=== PATIENT | female | born 1960 | race Caucasian/White ===

== ENCOUNTER 2017-11-25 15:28 | Outpatient (CLI) | payer OTHER | END 2017-11-25 15:29 | disposition home or self-care (01) | LOC: BICMAMMO 15:28 | PROVIDERS: ATTEND Obstetrics & Gynecology | DX: Z12.31 Encounter for screening mammogram for malignant neoplasm of breast (principal); Z80.3 Family history of malignant neoplasm of breast | CPT/HCPCS: 77063; 77067 ==

== ENCOUNTER 2018-07-26 09:20 | Outpatient (CLI) | payer BC ==
--- NOTE | 2018-07-26 11:26 | ULT ---
RENAL ULTRASOUND: Date: 07-26-18 Comparison: None. History: Hematuria. Technique: Multiplanar grayscale sonographic imaging of kidneys and urinary bladder obtained. FINDINGS: Right kidney measures 9.8 x 5.1 x 5.0 cm and left kidney measures 10.2 x 4.8 x 5.3 cm. No renal mass is identified on either side. No discrete renal stone is noted on the right and there is no right sided hydronephrosis. There is a small echogenic focus in the mid pole of the left kidney which could represent a stone yoav suring in the 5 mm range. No hydronephrosis is evident on the left. Urinary bladder appears grossly unremarkable with a prevoid volume of 122 cc and a post void volume o f 7 cc. IMPRESSION: No evidence for hydronephrosis is seen on either side. Question subcentimeter stone within mid pole l eft kidney. This could be better assessed via CT examination of the abdomen and pelvis. POS: [facility]
== END 2018-07-26 09:21 | disposition home or self-care (01) ==
LOC: BICULT 09:20
PROVIDERS: ATTEND Family Medicine
DX: R31.9 Hematuria, unspecified (principal)
CPT/HCPCS: 76770

== ENCOUNTER 2018-07-31 20:34 | Emergency (ER) | payer BC ==
[2018-07-31 21:16] LABS: Bilirubin Negative (Negative); Blood, Urine Moderate (Negative); Clarity CLEAR (Clear); Glucose, Urine (Dipstick) Negative (Negative); Leukocyte Negative (Negative); Nitrite Negative (Negative); Protein, Urine (Dipstick) Negative (Neg-Trace); Specific Gravity, Urine 1.022 (1.002-1.036); Urobilinogen 0.2 mg/dL (0.2-1.0); pH, Urine 5.5 (5.0-9.0)
[2018-07-31 21:18] LABS: Bacteria/HPF None Seen HPF (None Seen); Hyaline Casts/LPF 7-10 HYALINE CAST LPF (0-3 Hyaline); Pathc Cast-AUWi Flag 1.01 (0-2.49); Squamous Epithelial 0-3 HPF (0-3); WBC/HPF 0-3 HPF (0-3)
[2018-07-31 21:24] LABS: #Lymphocytes 0.7 thou/uL (1.20-3.40); #Monocytes 0.4 thou/uL (0.11-0.59); #Neutrophils 11.8 thou/uL (1.40-6.50); %Basophils 0.3 % (0.0-1.0); %Eosinophils 0.2 % (0.0-10.0); %Lymphocytes 5.6 % (21.0-51.0); %Monocytes 2.7 % (0.0-10.0); %Neutrophils 91.2 % (42.0-75.0); Mean Corpuscular HGB CONC 34.2 g/dL (32.0-36.0); Mean Corpuscular Hemoglobin 34.4 pg (27.0-31.0); Mean Platelet Volume 8.1 fL (7.4-10.4); Platelet Count 207 thou/uL (130-400); RBC Distribution Width 11.7 % (11.5-14.5); Red Blood Cell (RBC) Count 4.35 mill/uL (4.20-5.40)
[2018-07-31 21:43] LABS: ALT (SGPT) 18 U/L (8-55); AST (SGOT) 27 U/L (5-34); Albumin 4.5 g/dL (3.5-5.0); Alkaline Phosphatase 37 U/L (40-150); Anion Gap 14 mmol/L (10-20); BUN (Urea Nitrogen) 20 mg/dL (9.8-20.1); Bilirubin, Total 0.4 mg/dL (0.2-1.2); Calc. Creatinine Clearance 0 mL/min (70-130); Calcium 9.8 mg/dL (7.8-10.44); Carbon Dioxide 23 mmol/L (22-29); Chloride 107 mmol/L (98-107); Estimated GFR-MDRD 66; Globulin 3.3 g/dL (2.4-3.5); Glucose 84 mg/dL (70-105); Potassium 3.4 mmol/L (3.5-5.1); Protein, Total 7.8 g/dL (6.0-8.3); Sodium 141 mmol/L (136-145)
[2018-07-31] MEDS ORDERED: Ondansetron ODT 8 MG TAB ONE (22:08)
== END 2018-07-31 23:18 | disposition home or self-care (01) ==
LOC: ERS 20:34
DX: R55 Syncope and collapse (principal); R11.2 Nausea with vomiting, unspecified; E78.1 Pure hyperglyceridemia; Z79.899 Other long term (current) drug therapy
CPT/HCPCS: 36415; 80053; 81003; 81015; 84484; 85025; 93005; 96360

== ENCOUNTER 2018-09-12 14:17 | Outpatient (CLI) | payer OTHER ==
--- NOTE | 2018-09-12 15:25 | CT ---
CT OF THE ABDOMEN AND PELVIS WITHOUT IV CONTRAST: INDICATION: Concern for renal stone. COMPARISON: CT of the abdomen dated 06/30/2004. FINDINGS: Lung bases are clear. Hepatic cysts appear similar appearing. Small septal calcifications are seen within the largest cyst within the left hepatic lobe on image 17 of series 2 measuring 2.2 cm. Adrenal glands and unopacified pancreas appear within normal limits. There are bilateral extrarenal pelves. No definite renal or ureteral calculus is demonstrated. No free fluid or enlarged lymph nodes are evident. There is scattered diverticula involving the colon. There is a mild amount of retained stool within the colon. There is a normal appendix in the right lower quadrant. The small bowel is of normal caliber. There is diffuse osteopenia. There is scattered degenerative and osteoarthritic change. No definite acute osseous abnormality is evident. IMPRESSION: 1. No renal or ureteral calculus. 2. Bilateral extrarenal pelves. 3. Hepatic cysts. The largest within the left hepatic lobe has intervally developed a few internal septal calcifications. As a conservative measure, a followup examination in 6 months is recommended to document stability. 4. Colonic diverticulosis with a moderate amount of retained stool within the colon. POS: [facility]
== END 2018-09-12 14:18 | disposition home or self-care (01) ==
LOC: BICCT 14:17
PROVIDERS: ATTEND Urology
DX: N20.0 Calculus of kidney (principal); K76.89 Other specified diseases of liver; K57.30 Diverticulosis of large intestine without perforation or abscess without bleeding; N28.89 Other specified disorders of kidney and ureter
CPT/HCPCS: 74176

== ENCOUNTER 2018-11-27 15:28 | Outpatient (CLI) | payer BC ==
--- NOTE | 2018-11-27 15:58 | MMO ---
Bilateral MAMMO Bilat Screen [facility]. CLINICAL HISTORY: Patient is 58 years old and is seen for screening. The patient has the following family history of breast cancer: mother, at age 72. The patient has no personal history of cancer. VIEWS: The views performed were: bilateral craniocaudal with tomosynthesis and bilateral mediolateral oblique with tomosynthesis. FILMS COMPARED: The present examination has been compared to prior imaging studies performed at [facility] on 08/09/2007, 08/16/2008, 09/03/2009, 09/09/2010, 11/05/2011 and 11/25/2017, at [facility] on 03/23/2005 and 06/23/2006, and at [facility] on 11/17/2012, 01/16/2014, 02/19/2015 and 04/30/2016. MAMMOGRAM FINDINGS: There are scattered fibroglandular densities. There are no suspicious masses, suspicious calcifications, or new areas of architectural distortion. IMPRESSION: THERE IS NO MAMMOGRAPHIC EVIDENCE OF MALIGNANCY. A ROUTINE FOLLOW-UP MAMMOGRAM IN 1 YEAR IS RECOMMENDED. THE RESULTS OF THIS EXAM WERE SENT TO THE PATIENT. ACR BI-RADS Category 1 - Negative MAMMOGRAPHY NOTE: 1. A negative mammogram report should not delay a biopsy if a dominant of clinically suspicious mass is present. 2. Approximately 10% to 15% of breast cancers are not detected by mammography. 3. Adenosis and dense breasts may obscure an underlying neoplasm.
== END 2018-11-27 15:29 | disposition home or self-care (01) ==
LOC: BICMAMMO 15:28
PROVIDERS: ATTEND Obstetrics & Gynecology
DX: Z12.31 Encounter for screening mammogram for malignant neoplasm of breast (principal); Z80.3 Family history of malignant neoplasm of breast
CPT/HCPCS: 77063; 77067

== ENCOUNTER 2019-04-05 10:26 | Outpatient (CLI) | payer OTHER ==
--- NOTE | 2019-04-05 10:42 | RAD ---
2 views chest: 04/05/2019 COMPARISON: 09/24/2015 HISTORY: Chest pain on the right for 2 months FINDINGS: Increased linear interstitial density and pulmonary hyperinflation noted. There is no pneum othorax, pleural fluid, focal consolidation, or alveolar edema. IMPRESSION: No acute findings.
== END 2019-04-05 10:27 | disposition home or self-care (01) ==
LOC: BICCT 10:26
PROVIDERS: ATTEND Urology
DX: R07.9 Chest pain, unspecified (principal)
CPT/HCPCS: 71046

== ENCOUNTER 2020-01-04 10:19 | Outpatient (CLI) | payer BC ==
--- NOTE | 2020-01-04 10:48 | MMO ---
Bilateral MAMMO Bilat Screen [facility]. CLINICAL HISTORY: Patient is 59 years old and is seen for screening. The patient has the following family history of breast cancer: mother, at age 72. The patient has no personal history of cancer. VIEWS: The views performed were: bilateral craniocaudal with tomosynthesis; bilateral mediolateral oblique with tomosynthesis; and bilateral exaggerated craniocaudal. FILMS COMPARED: The present examination has been compared to prior imaging studies performed at [facility] on 11/25/2017 and 11/27/2018, and at [facility] on 02/19/2015 and 04/30/2016. This study has been interpreted with the assistance of computer-aided detection. MAMMOGRAM FINDINGS: There are scattered fibroglandular densities. There are stable benign appearing calcifications seen in both breasts. There are no suspicious masses, suspicious calcifications, or new areas of architectural distortion. IMPRESSION: THERE IS NO MAMMOGRAPHIC EVIDENCE OF MALIGNANCY. A ROUTINE FOLLOW-UP MAMMOGRAM IN 1 YEAR IS RECOMMENDED. THE RESULTS OF THIS EXAM WERE SENT TO THE PATIENT. ACR BI-RADS Category 2 - Benign finding MAMMOGRAPHY NOTE: 1. A negative mammogram report should not delay a biopsy if a dominant of clinically suspicious mass is present. 2. Approximately 10% to 15% of breast cancers are not detected by mammography. 3. Adenosis and dense breasts may obscure an underlying neoplasm. Reported by: BIANKA ORTIZ MD Electonically Signed: [id number]
--- NOTE | 2020-01-04 13:56 | BD ---
DEXA BONE DENSITY EXAM: HISTORY: A 59-year-old postmenopausal female for screening. FINDINGS: Lumbar Spine: BMD (g/cm2) L1 0.764 T-Score: -2.1 L2 0.796 T-Score: -2.1 L3 0.834 T-Score: -2.3 L4 0.794 T-Score: -2.4 L1-L4 0.798 T-Score: -2.3 Femoral Neck: 0.603 T-Score: -2.2 Total Femur: 0.803 T-Score: -1.1 Impression: Osteopenia. This patient has a 10-year WHO fracture risk of a major osteoporotic fracture of 9.5% an d of a hip fracture of 1.5%. POS: [facility]
== END 2020-01-04 10:20 | disposition home or self-care (01) ==
LOC: BICMAMMO 10:19
PROVIDERS: ATTEND Obstetrics & Gynecology
DX: Z12.31 Encounter for screening mammogram for malignant neoplasm of breast (principal); Z13.820 Encounter for screening for osteoporosis; M85.89 Other specified disorders of bone density and structure, multiple sites; Z80.3 Family history of malignant neoplasm of breast
CPT/HCPCS: 77063; 77067; 77080

== ENCOUNTER 2020-07-17 10:34 | Outpatient (CLI) | payer BC ==
[2020-07-17 22:42] LABS: SARS-CoV-2 MS2 Positive; SARS-CoV-2 N Gene Negative; SARS-CoV-2 S Gene Negative; SARS-CoV-2 by NAA Not Detected (NotDetected); SARS-CoV-2 orf1ab Negative
== END 2020-07-17 10:35 | disposition home or self-care (01) ==
LOC: LABBT 10:34
PROVIDERS: ATTEND Internal Medicine Gastroenterology
DX: Z01.812 Encounter for preprocedural laboratory examination (principal); Z20.828 Contact with and (suspected) exposure to other viral communicable diseases
CPT/HCPCS: 87635; U0003

== ENCOUNTER 2020-07-21 11:56 | Day surgery (SDC) | payer BC ==
[2020-07-18 12:39] VITALS: BMI 20.9
[~2020-07-21 11:56] MED LIST: Magnevist 469MG/ML 20 ML VIAL ONE
[2020-07-21] MEDS ORDERED: Midazolam HCl 2 mg/2 ml Vial ONE (12:38)
[2020-07-21] MEDS ORDERED: Lidocaine 2% PF 5 ML VIAL ONE (12:38)
[2020-07-21] MEDS ORDERED: PROPOFOL 20 ML ONE (12:38)
--- NOTE | 2020-07-21 14:00 | MRI ---
EXAM: MRI of the abdomen without and with contrast COMPARISON: CT abdomen/pelvis 09/12/2018 HISTORY: Hepatic cysts seen on CT TECHNIQUE: Multiplanar multi sequence MR images were taken of the abdomen without and with IV contras t. FINDINGS: Liver: There are numerous cysts scattered throughout the liver. Some of these cysts have internal thi n septations. The largest is seen in the left lobe of liver measuring 3.0 cm in greatest dimension. No suspicious enhancement is seen amongst these cystic lesions. No loss of signal is seen on out of p hase images to suggest fatty infiltration. Gallbladder: No filling defects or gallbladder wall thickening. Common bile duct: Normal caliber without filling defects Adrenal glands: Unremarkable. Kidneys: No hydronephrosis. Bilateral renal cysts measuring up to 7 mm in size. No abnormal areas of enhancement. Spleen: Unremarkable. Pancreas: Unremarkable. No abnormal enhancement. Retroperitoneum: No enlarged lymph nodes Bones: No marrow signal abnormality. Lung bases: Atelectasis IMPRESSION: 1. Hepatic cysts. Some of these cysts contain septations without other suspicious features 2. Bilateral renal cysts
[2020-07-21] MEDS ORDERED: Lidocaine 1% PF 5 ML VIAL ONE (15:27)
[2020-07-21] MEDS ORDERED: ePHEDrine 50 MG/ML VIAL ONE (15:27)
== END 2020-07-21 14:57 | disposition home or self-care (01) ==
LOC: SDC/OP 11:56
PROVIDERS: ATTEND Internal Medicine Gastroenterology
DX: K76.89 Other specified diseases of liver (principal); N28.1 Cyst of kidney, acquired; Z79.83 Long term (current) use of bisphosphonates; Z79.899 Other long term (current) drug therapy
CPT/HCPCS: 74183; 82565; A9579; J2001; J2250; J2704; J3490

== ENCOUNTER 2024-02-28 15:25 | Outpatient (CLI) | payer BC | END 2024-02-28 15:26 | disposition home or self-care (01) | LOC: BICMAMMO 15:25 | PROVIDERS: ATTEND Internal Medicine | DX: M85.852 Other specified disorders of bone density and structure, left thigh (principal); M81.0 Age-related osteoporosis without current pathological fracture | CPT/HCPCS: 77080 ==

== ENCOUNTER 2025-06-19 12:05 | Outpatient (CLI) | payer BC | END 2025-06-19 12:06 | disposition home or self-care (01) | LOC: BICMAMMO 12:05 | PROVIDERS: ATTEND Internal Medicine | DX: Z13.820 Encounter for screening for osteoporosis (principal); M81.0 Age-related osteoporosis without current pathological fracture | CPT/HCPCS: 77080 ==